=== PATIENT | female | born 1970 | race Caucasian/White ===

== ENCOUNTER → 2021-03-02 | Outpatient (CLI) | payer BC ==
--- NOTE | 2021-03-02 17:05 | RAD ---
AP, lateral and oblique views of the left ankle. No comparison is available. Indication: Ankle pain. No fracture, subluxation or dislocation is seen. The ankle mortise is intact. There is lateral soft t issue swelling seen over the lateral malleolus. Cannot exclude ligamentous injury. Impression: Soft tissue swelling laterally, cannot exclude ligamentous injury. Electronically signed by: Dustin Celaya MD (03/02/2021 5:03 PM) [facility]
== END ==
LOC: RAD 16:42
PROVIDERS: ATTEND Nurse Practitioner Family
DX: M79.89 Other specified soft tissue disorders (principal); M25.572 Pain in left ankle and joints of left foot
CPT/HCPCS: 73610